=== PATIENT | female | born 1985 | race Caucasian/White ===

== ENCOUNTER 2017-12-03 13:09 | Emergency (ER) | payer OTHER, SELFPAY ==
[2017-12-03 13:13] VITALS: BP 105/69; PULSE 70; RESP 16; TEMP 36.9; O2SAT 100
--- NOTE | 2017-12-03 13:37 | ED.NAVMDI ---
HPI - Nausea/Vomiting/Diarrhea General Chief complaint: Nausea/Vomiting/Diarrhea Stated complaint: exposed to c diff Time Seen by Provider: 12/03/17 13:37 Source: patient Mode of arrival: ambulatory Limitations: no limitations History of Present Illness HPI Narrative: patient is a 32-year-old female with a history of Sjogren's syndrome. She states that her roommate had a grandmother who just recently but also had C diff. The patient states that this roommate came back to their place of living in a couple days ago developed some diarrhea and then the patient yesterday had diarrhea. No fevers. The patient was not exposed to the grandmother who had C diff. She states that yesterday she had diarrhea and did have some bright red blood in it. Had a bowel movement this morning without any bright red blood. Has some left-sided abdominal pain but this is very vague for her. No urinary symptoms. No vaginal bleeding. No recent travel. Related Data Home Medications Medication Instructions Recorded Confirmed No Known Home Medications 12/03/17 12/03/17 Allergies Allergy/AdvReac Type Severity Reaction Status Date / Time No Known Drug Allergies Allergy Verified 12/03/17 13:12 Review of Systems Constitutional Denies fever(s) and Denies headache(s) ENT Ears, Nose, Mouth, and Throat: Denies headache(s) Cardiovascular Denies chest pain and Denies dyspnea Respiratory Denies dyspnea Gastrointestinal Gastrointestinal: Reports change in bowel habits, Denies constipation, Reports diarrhea, Denies nausea and Denies vomiting Genitourinary Denies dysuria and Denies vaginal discharge Musculoskeletal Denies myalgias and Denies arthralgias Integumentary/Breasts Denies lesions and Denies rash Neurologic Denies headache(s) Hematologic/Lymphatic Denies easy bleeding and Denies easy bruising Allergic/Immunologic Denies urticaria [facility] Medical History Sjoegren syndrome (Acute) Surgical History No pertinent past surgical history (Acute) Social History Smoking Status: Never smoker Exam Initial Vital Signs Initial Vital Signs: Vital Signs Temperature 98.5 F 12/03/17 13:13 Pulse Rate 70 12/03/17 13:13 Respiratory Rate 16 12/03/17 13:13 Blood Pressure 105/69 12/03/17 13:13 Pulse Oximetry 100 12/03/17 13:13 Const General: cooperative, healthy appearing, comfortable, well developed and well groomed Orientation: alert, awake and oriented x3 HENMT Head: normal to inspection and normocephalic Cardio Rate: regular rate Rhythm: regular rhythm Pulses: radial pulses present GI Inspection: non-distended Palpation: soft, No firm, No guarding and tender ( Left lower quadrant) Back/Spine/Pelvis Back: No CVA tenderness Skin Lesions: no lesions Rashes: no rashes Neuro General: alert, awake and oriented x3 Extrem General: normal to inspection and capillary refill normal Psych Appearance: grossly normal and well kempt Course Orders Ordered: ED Orders 12/03/17 13:50 Clostridium Difficile Tox PCR Stat 12/03/17 14:26 Basic Metabolic Panel Stat Complete Blood Count AUTO DIFF Stat Vital Signs - 8 hr 12/03/17 13:13 Temperature 98.5 F Pulse Rate 70 Respiratory Rate 16 Blood Pressure 105/69 Pulse Oximetry 100 MDM - Nausea/Vomiting/Diarrhea Lab Data Attestation: I reviewed the patient's lab results. Result diagrams: 12/03/17 14:26 12/03/17 14:26 Lab Results 12/03/17 12/03/17 Range/Units 14:26 14:26 WBC 8.1 (4.5-11.0) X10^3/uL RBC 4.11 (4.0-5.2) X10^6/uL Hgb 12.0 (12.0-16.0) g/dL Hct 36.2 (36-46) % MCV 87.9 (80-100) fL MCH 29.2 (26-34) PG MCHC 33.3 (30-36) % RDW 13.0 (11.6-14.8) % Plt Count 218 (150-400) X10^3/uL Neut % (Auto) 75.8 H (50-75) % Lymph % (Auto) 19.2 L (25-40) % [place] % (Auto) 4.1 (3-14) % Eos % (Auto) 0.2 L (2-4) % Baso % (Auto) 0.7 (0-2) % Neut # (Auto) 6100 H (7333-8031) /uL Sodium 144 (137-145) mmol/L Potassium 3.6 (3.4-5.1) mmol/L Chloride 106 (98-107) mmol/L Carbon Dioxide 26 (22-32) mmol/L BUN 9 (7-17) mg/dL Creatinine 0.70 (0.52-1.04) mg/dL Estimated GFR > 60.0 (>60) mL/min BUN/Creatinine Ratio 12.9 (6-22) Glucose 90 (70-100) mg/dL Calcium 9.0 (8.4-10.2) mg/dL Point of Care Testing Test Results Negative Urine Dip Bedside Urine Glucose Negative Bedside Urine Bilirubin - Negative Bedside Urine Ketone + 15 Urine Specific [place] 1.010 Bedside Urine Occult Blood - Negative Bedside Urine pH 8.0 Bedside Urine Protein - Negative Bedside Urine Urobilinogen - Negative Bedside Urine Nitrite - Negative Bedside Urine Leukocytes - Negative Esterase MDM Narrative Medical decision making narrative: patient with a benign abdominal exam today. Has a normal white blood cell count. Patient was unable to provide a stool sample here in the emergency department. Unable to order outpatient studies because there is no way to follow up on the studies. Patient was given the supplies in order to take study at home. She was instructed to increase her fluid intake. She was instructed that if her symptoms persist that she should take a sample at home and bring it into the emergency department with her on a future visit if needed. She was given other return precautions. She expressed understanding and agreement plan. Given her normal white blood cell count, just 2 days of diarrhea, the unlikely exposure to C diff given her history will hold on antibiotics for now. Discharge Plan Departure Patient Disposition: Home Clinical Impression: Diarrhea Instructions: Diarrhea Activity Restrictions/Additional Instructions: make sure you are increasing your fluid intake. If your symptoms do not improve or worsen over the next couple days or are able to tolerate oral intake return to the emergency department for new or worsening symptoms. Prescriptions: No Action No Known Home Medications RF: 0
[2017-12-03 14:41] LABS: Add Manual Diff / Slide Review NO; Basophils Percent Auto 0.7 % (0-2); Eosinophils Percent Auto 0.2 % (2-4); Hematocrit 36.2 % (36-46); Lymphocytes Percent Auto 19.2 % (25-40); Mean Corpuscular HGB Conc 33.3 % (30-36); Mean Corpuscular Hemoglobin 29.2 PG (26-34); Mean Corpuscular Volume 87.9 fL (80-100); Monocytes Percent Auto 4.1 % (3-14); Neutrophils Absolute Auto 6100 /uL (3000-5900); Neutrophils Percent Auto 75.8 % (50-75); Platelet Count 218 X10^3/uL (150-400); Red Blood Cell Count 4.11 X10^6/uL (4.0-5.2); White Blood Cell Count 8.1 X10^3/uL (4.5-11.0)
[2017-12-03 14:52] LABS: BUN Creatinine Ratio 12.9 (6-22); Blood Urea Nitrogen 9 mg/dL (7-17); Carbon Dioxide 26 mmol/L (22-32); Chloride 106 mmol/L (98-107); Estimated Glomerular Filt Rate > 60.0 mL/min (>60); Glucose 90 mg/dL (70-100); HEMOLYSIS < 15 (0-50); Potassium 3.6 mmol/L (3.4-5.1); Sodium 144 mmol/L (137-145)
[2017-12-03 15:13] VITALS: BP 106/68; PULSE 53; RESP 16; O2SAT 100
== END 2017-12-03 15:21 | disposition home or self-care (01) ==
PROVIDERS: Emergency Provider Emergency Medicine
DX: R19.7 Diarrhea, unspecified (principal)
CPT/HCPCS: 36415; 80048; 81003; 81025; 85025; 99283